=== PATIENT | female | born 2000 | race Caucasian/White ===

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

== ENCOUNTER 2022-01-05 17:53 | Outpatient (CLI) | payer OTHER, SELFPAY ==
[2022-01-05] MEDS: diphenhydrAMINE HCl CAP 25 MG CAPSULE PO (18:29)
[2022-01-05] MEDS: FAMOTIDINE 20 MG TABLET PO (18:29)
[2022-01-05 18:35] VITALS: BP 120/72; PULSE 108; RESP 20; TEMP 36.8; O2SAT 99
[2022-01-05] MEDS: BEBTELOVIMAB 175 MG/2 ML VIAL IV PUSH (18:44)
[2022-01-05 19:34] VITALS: BP 117/67; PULSE 104; RESP 16; TEMP 37.1; O2SAT 98
== END 2022-01-05 17:54 | disposition home or self-care (01) ==
LOC: CHSTREATRM 17:54
PROVIDERS: PCP Family Medicine; Visit Provider Family Medicine
DX: U07.1 COVID-19 (principal)
CPT/HCPCS: A9270; M0222; Q0222

== ENCOUNTER 2023-07-09 12:05 | Outpatient (CLI) | payer OTHER, SELFPAY ==
[2023-07-09 12:21] LABS: Basophils Absolute Auto 0.05 K/mm3 (0.00-0.10); Basophils Percent Auto 0.7 % (0.0-1.0); Eosinophils Absolute Auto 0.22 K/mm3 (0.02-0.50); Eosinophils Percent Auto 2.9 % (1.0-6.0); Hematocrit 45.2 % (35.0-49.0); Hemoglobin 15.1 g/dL (12.0-15.0); Immature Granulocyte Absolute 0.02 K/mm3 (0.00-0.00); Immature Granulocyte Percent A 0.3 % (0.0-0.0); Lymphocytes Absolute Auto 2.29 K/mm3 (1.10-4.50); Mean Corpuscular HGB Conc 33.4 g/dL (32.0-36.0); Mean Corpuscular Hemoglobin 30.2 pg (27.0-31.0); Mean Corpuscular Volume 90.4 fL (78.0-102.0); Mean Platelet Volume 9.4 fl (9.2-11.8); Monocytes Absolute Auto 0.58 K/mm3 (0.10-0.90); Monocytes Percent Auto 7.6 % (2.0-11.0); Neutrophils Absolute Auto 4.5 K/mm3 (1.7-7.2); Neutrophils Percent Auto 58.5 % (50.0-70.0); Platelet Count Result 367 K/mm3 (150-420); Red Cell Distribution Width 12.6 % (11.6-14.4); White Blood Count 7.6 K/mm3 (4.8-10.8)
== END 2023-07-09 12:06 | disposition home or self-care (01) ==
LOC: CHSLAB 12:08
PROVIDERS: PCP Family Medicine; Visit Provider Internal Medicine Nephrology
DX: D17.71 Benign lipomatous neoplasm of kidney (principal)
CPT/HCPCS: 36415; 85025

== ENCOUNTER 2023-07-24 16:06 | Outpatient (CLI) | payer OTHER, SELFPAY ==
[2023-07-24 16:57] LABS: Influenza A QL RT-PCR Negative (Negative); Influenza B QL RT-PCR Negative (Negative); SARS-CoV-2 RNA PCR Negative (Negative)
[2023-07-25 11:43] LABS: RSV RNA, RT-PCR Positive (Negative)
== END 2023-07-24 16:07 | disposition home or self-care (01) ==
LOC: CHSLAB 16:08
PROVIDERS: PCP Family Medicine; Visit Provider Family Medicine
DX: J06.9 Acute upper respiratory infection, unspecified (principal)
CPT/HCPCS: 87636; 87637

== ENCOUNTER 2025-04-16 20:38 | Emergency (ER) | payer OTHER, SELFPAY ==
[2025-04-16 20:45] VITALS: BP 135/88; PULSE 90; RESP 18; TEMP 36.8; O2SAT 99
[2025-04-16 21:08] LABS: Hematocrit 43.0 % (35.0-49.0); Hemoglobin 14.2 g/dL (12.0-15.0); Immature Granulocyte Percent A 0.4 % (0.0-0.0); Lymphocytes Absolute Auto 3.28 K/mm3 (1.10-4.50); Mean Corpuscular HGB Conc 33.0 g/dL (32-36); Mean Corpuscular Hemoglobin 30.7 pg (27.0-31.0); Mean Corpuscular Volume 92.9 fL (78.0-102.0); Nucleated Red Blood Cells Absolute Auto 0.00 K/mm3 (0.00-0.00); Nucleated Red Blood Cells Perc 0.0 % (0-0.0); Platelet Count Result 328 K/mm3 (150-420); Red Blood Count 4.63 M/mm3 (4.20-5.40); White Blood Count 13.4 K/mm3 (4.8-10.8)
[2025-04-16 21:15] LABS: Add Urine Microscopic? YES; Glucose Urine UA Negative (Negative); Leukocyte Esterase Ur Negative (Negative); Nitrate Urine Negative (Negative); Specific Grav Ur 1.020 (1.010-1.020)
[2025-04-16 21:19] LABS: Alanine Aminotransferase 24 U/L (6-35); Albumin Level 5.0 g/dL (3.5-5.1); Alkaline Phosphatase 113 U/L (38-126); Anion Gap 13 mmol/L (4-12); Aspartate Amino Transferase 37 U/L (14-36); Bilirubin,Total 0.6 mg/dL (0.2-1.3); Blood Urea Nitrogen 10 mg/dL (7-17); Calcium 9.8 mg/dL (8.4-10.2); Carbon Dioxide 26 mmol/L (22-30); Chloride 103 mmol/L (98-107); Estimated CRCL calculation 104 ml/min; Estimated Glomerular Filt Rate > 60; Glucose 84 mg/dL (65-110); Osmolality Calculated 292 mOsm/kg (285-295); Potassium 3.6 mmol/L (3.4-5.0); Sodium 142 mmol/L (137-145); Total Protein 9.1 g/dL (6.3-8.2)
[2025-04-16 21:22] LABS: Appearance Urine Cloudy (Clear)
[2025-04-16 21:34] VITALS: PULSE 75; RESP 17; O2SAT 98
[2025-04-16 21:45] VITALS: BP 131/78; PULSE 79; RESP 17; O2SAT 99
[2025-04-16 21:46] VITALS: PULSE 76; RESP 18; O2SAT 99
--- NOTE | 2025-04-16 21:47 | ED_ITS ---
HPI - Seizure General Chief Complaint: Urogenital-Female Stated Complaint: dizzness Time Seen by Provider: 04/16/25 20:40 Source: patient Mode of arrival: ambulatory Limitations: no limitations History of Present Illness HPI Narrative: 24-year-old with a history of seizure disorder status post renal artery embolization at [facility] his to the ER with complaints of having 2 seizures since this morning. She is on oxy carbamazepine. She denies having any fevers chills. She states that she call a neurologist at [facility] who recommended to come to the ER to rule out sepsis. She denies having any fever or chills. She has ongoing back pain. MD complaint: seizure Onset (ago): day(s) (1) Related Data Allergies Allergy/AdvReac Type Severity Reaction Status Date / Time No Known Allergies Allergy Verified 04/16/25 21:32 Review of Systems 2 Review of Systems: All systems reviewed & are unremarkable except as noted in HPI and below Constitutional: Constitutional: Reports no additional constitutional complaints Eyes: Eyes: Reports no additional eye complaints ENT: Reports system reviewed and no additional complaints, except as documented Cardiovascular: Cardiovascular: Reports no additional cardiovascular complaints Respiratory: Respiratory: Reports no additional respiratory complaints Gastrointestinal: Gastrointestinal: Reports no additional gastrointestinal complaints Genitourinary: Genitourinary: Reports no additional female genitourinary complaints Neurologic: Reports as per HPI Exam 2 Narrative: GENERAL: Well-appearing, well-nourished, and in no acute distress. HEAD: Normocephalic, atraumatic. EYES: PERRLA and EOMI. ENT: Nares clear, no rhinorrhea or epistaxis. Mucous membranes moist. NECK: Supple. CHEST: Clear to auscultation. No respiratory distress. HEART: Regular rate and rhythm. No murmur heard. Normal peripheral pulses. ABDOMEN: Soft, nontender, nondistended, normal active bowel sounds. EXTREMITIES: Normal range of motion. No edema. SKIN: Warm, dry, no rash. NEURO: No focal deficits. Alert and oriented x3. PSYCH: Normal mood and affect. Course Course Emergency Course: Notified patient about her lab work. Hematuria most likely from the postprocedure. Advised to continue home medication. Follow up with her primary doctor or neurologist at [facility] Vital Signs Vital signs: Vital Signs Temperature 36.8 C 04/16/25 20:45 Pulse Rate 90 04/16/25 20:45 Respiratory Rate 18 04/16/25 20:45 Blood Pressure 135/88 04/16/25 20:45 Pulse Oximetry 99 04/16/25 20:45 Oxygen Delivery Room Air 04/16/25 20:45 Temperature 36.8 C 04/16/25 20:45 Pulse Rate 90 04/16/25 20:45 Respiratory Rate 18 04/16/25 20:45 Blood Pressure 135/88 04/16/25 20:45 Pulse Oximetry 99 04/16/25 20:45 Oxygen Delivery Room Air 04/16/25 20:45 MDM - Seizure Lab Data 04/16/25 21:03 04/16/25 21:03 Labs: Lab Results 04/16/25 04/16/25 Range/Units 20:49 21:03 WBC 13.4 H (4.8-10.8) K/mm3 RBC 4.63 (4.20-5.40) M/mm3 Hgb 14.2 (12.0-15.0) g/dL Hct 43.0 (35.0-49.0) % MCV 92.9 (78.0-102.0) fL MCH 30.7 (27.0-31.0) pg MCHC 33.0 (32-36) g/dL RDW 13.2 (11.6-14.4) % Plt Count 328 (150-420) K/mm3 MPV 9.1 L (9.2-11.8) fl Immature Gran % (Auto) 0.4 H (0.0-0.0) % Neut % (Auto) 66.1 (50.0-70.0) % Lymph % (Auto) 24.6 (18.0-42.0) % [place] % (Auto) 8.1 (2.0-11.0) % Eos % (Auto) 0.4 L (1.0-6.0) % Baso % (Auto) 0.4 (0.0-1.0) % Lymph # (Auto) 3.28 (1.10-4.50) K/mm3 [place] # (Auto) 1.08 H (0.10-0.90) K/mm3 Eos # (Auto) 0.05 (0.02-0.50) K/mm3 Baso # (Auto) 0.06 (0.00-0.10) K/mm3 Abs Immat Gran (auto) 0.06 H (0.00-0.00) K/mm3 Absolute Neuts (auto) 8.82 H (1.70-7.20) K/mm3 Absolute Nucleated RBC 0.00 (0.00-0.00) K/mm3 Nucleated RBC % 0.0 (0-0.0) % Sodium 142 (137-145) mmol/L Potassium 3.6 (3.4-5.0) mmol/L Chloride 103 (98-107) mmol/L Carbon Dioxide 26 (22-30) mmol/L Anion Gap 13 H (4-12) mmol/L BUN 10 (7-17) mg/dL Creatinine 0.71 (0.7-1.0) mg/dL Estim Creat Clear Calc 104 ml/min Estimated GFR > 60 (59 - ) Glucose 84 (65-110) mg/dL Calculated Osmolality 292 (285-295) mOsm/kg Calcium 9.8 (8.4-10.2) mg/dL Total Bilirubin 0.6 (0.2-1.3) mg/dL AST 37 H (14-36) U/L ALT 24 (6-35) U/L Alkaline Phosphatase 113 (38-126) U/L Total Protein 9.1 H (6.3-8.2) g/dL Albumin 5.0 (3.5-5.1) g/dL Urine Color Dark yellow (Yellow) Urine Appearance Cloudy A (Clear) Urine pH 7.0 (5.0-8.0) Ur Specific [place] 1.020 (1.010-1.020) Urine Protein 1+ H (Negative) Urine Glucose (UA) Negative (Negative) Urine Ketones 1+ H (Negative) Ur Blood (Man) 2+ H (Negative) Urine Nitrate Negative (Negative) Urine Bilirubin 1+ H (Negative) Urine Urobilinogen 0.2 (0.2-1.0) mg/dL Ur Leukocyte Esterase Negative (Negative) Urine RBC 11-20 H (0-2) /hpf Ur Squamous Epith Cells Many H (Few) /hpf Amorphous Sediment Heavy H (None) Urine Bacteria 1+ H (None) /hpf Urine Mucus Heavy H /lpf Discharge Plan Discharge Clinical Impression: Seizure disorder Patient Disposition: Home Condition: Stable Instructions: Recurrent Seizures in Adults (ED) Additional Instructions: continue home medications, follow with your Neurologist Patient Language: Georgian Follow-up/Referrals: Gilbert Law MD [Primary Care Provider, Internal Medicine] Time of Disposition: 21:52
== END 2025-04-16 22:16 | disposition home or self-care (01) ==
PROVIDERS: Emergency Provider Family Medicine; PCP Family Medicine
DX: G40.909 Epilepsy, unspecified, not intractable, without status epilepticus (principal)
CPT/HCPCS: 36415; 80053; 81001; 85025; 99283